=== PATIENT | female | born 1995 | race Two or more races ===

== ENCOUNTER 2022-11-06 07:07 | Emergency (ER) | payer OTHER ==
[~2022-11-06] VITALS: Ht 160 cm; Wt 72.6 kg
== END 2022-11-06 09:49 | disposition home or self-care (01) ==
LOC: ER 07:07
DX: O26.851 Spotting complicating pregnancy, first trimester (principal); Z3A.01 Less than 8 weeks gestation of pregnancy; Z88.6 Allergy status to analgesic agent

== ENCOUNTER 2022-11-24 23:28 | Emergency (ER) | payer OTHER ==
[~2022-11-24] VITALS: Ht 160 cm; Wt 72.6 kg
== END 2022-11-25 09:13 | disposition home or self-care (01) ==
LOC: ER 23:28
DX: O20.8 Other hemorrhage in early pregnancy (principal); Z3A.01 Less than 8 weeks gestation of pregnancy; Z88.5 Allergy status to narcotic agent; Z88.6 Allergy status to analgesic agent

== ENCOUNTER 2023-03-05 16:39 | Emergency (ER) | payer OTHER ==
[~2023-03-05] VITALS: Ht 160 cm; Wt 75.7 kg
== END 2023-03-05 21:55 | disposition home or self-care (01) ==
LOC: ER 16:39
DX: R53.81 Other malaise (principal); J03.90 Acute tonsillitis, unspecified; Z88.5 Allergy status to narcotic agent; Z88.6 Allergy status to analgesic agent

== ENCOUNTER 2023-03-16 08:41 | Outpatient (CLI) | payer OTHER | END 2023-03-16 08:42 | disposition home or self-care (01) | LOC: LAB 08:41 | PROVIDERS: ATTEND Obstetrics & Gynecology | DX: I82.890 Acute embolism and thrombosis of other specified veins (principal) ==

== ENCOUNTER 2023-06-07 07:18 | Emergency (ER) | payer OTHER ==
[~2023-06-07] VITALS: Ht 162.6 cm; Wt 73.9 kg
== END 2023-06-07 09:16 | disposition home or self-care (01) ==
LOC: ER 07:18
DX: J03.80 Acute tonsillitis due to other specified organisms (principal); Z88.6 Allergy status to analgesic agent

== ENCOUNTER → 2023-07-13 07:52 | Outpatient (CLI) | payer OTHER ==
[2023-07-13 08:31] LABS: HEMATOCRIT 38.4 % (36.0-45.00); HEMOGLOBIN 12.9 g/dL (12.0-15.00); MEAN CELL VOLUME 82.1 fL (80.00-100.00); MEAN CORPUSCULAR HEMOGLOBIN 27.6 pg (27.00-32.0); MEAN CORPUSCULAR HGB CONC 33.7 g/dl (32.0-36.0); PLATELET COUNT 392 K/uL (150-450); RED BLOOD COUNT 4.68 M/uL (4.00-6.00); RED CELL DISTRIBUTION WIDTH 14.5 % (11.5-14.5)
[2023-07-13 08:33] LABS: PH,URINE 5.5 (5.0-8.0); URINE APPEARANCE Clear; URINE BILIRRUBIN Negative (NEGATIVE); URINE BLOOD Negative; URINE COLOR Yellow; URINE GLUCOSE Negative (NEGATIVE); URINE LEUKOCYTE Negative; URINE NITRATE Negative; URINE PROTEIN Negative (NEGATIVE); URINE UROBILINOGEN 0.2 E.U./dl
[2023-07-13 08:36] LABS: URINE BACTERIA 361.5 uL (0.0-1933); URINE EPITHELIAL CELLS 32.1 uL (0.0-38.8); URINE RBC 9.1 uL (0.0-20.8); URINE WBC 4.3 uL (0.0-23.2)
[2023-07-13 08:57] LABS: BILIRUBIN TOTAL 0.3 mg/dL (0.3-1.2); CALCIUM 9.6 mg/dL (8.5-10.1); CREATININE SERUM 0.75 mg/dL (0.55-1.02); GFR 93.41; POTASSIUM 3.66 mEq/L (3.5-5.1)
== END | disposition home or self-care (01) ==
LOC: LAB 07:52
PROVIDERS: ATTEND Pediatrics Neonatal-Perinatal Medicine
DX: D64.9 Anemia, unspecified (principal); R82.90 Unspecified abnormal findings in urine; Z32.00 Encounter for pregnancy test, result unknown

== ENCOUNTER → 2023-07-29 06:39 | Outpatient (CLI) | payer OTHER ==
[2023-07-30 15:11] LABS: ANTI CARDIO IGA < 9 APL U/mL (0-11); ANTI CARDIO IGG < 9 GPL U/mL (0-14); ANTI CARDIO IGM < 9 MPL U/mL (0-12)
[2023-07-31 15:11] LABS: dRVVT 36.9 sec (0.0-47.0); interp Comment: (.); ptt-la 33.2 sec (0.0-43.5)
== END | disposition home or self-care (01) ==
LOC: LAB 06:39
PROVIDERS: ATTEND Obstetrics & Gynecology
DX: N91.1 Secondary amenorrhea (principal)

== ENCOUNTER 2024-02-15 07:37 | Emergency (ER) | payer OTHER ==
[~2024-02-15] VITALS: Ht 162.6 cm; Wt 75.7 kg
[2024-02-15] MEDS ORDERED: KETOROLAC TROMETHAMINE 30 MG VIAL IM STA (08:46)
[2024-02-15] MEDS ORDERED: CEFTRIAXONE SODIUM 1,000 MG VIAL IM STA (08:46)
== END 2024-02-15 08:58 | disposition home or self-care (01) ==
LOC: ER 07:39
DX: J03.90 Acute tonsillitis, unspecified (principal); Z88.8 Allergy status to other drugs, medicaments and biological substances

== ENCOUNTER 2024-03-21 13:48 | Emergency (ER) | payer OTHER ==
[~2024-03-21] VITALS: Ht 165.1 cm; Wt 78.5 kg
[2024-03-21] MEDS ORDERED: FAMOtidine 10 MG/ML (4ML VIAL) IV PUSH ONE (16:45)
[2024-03-21] MEDS ORDERED: KETOROLAC TROMETHAMINE 60 MG VIAL IM ONE (16:45)
[2024-03-21 17:47] LABS: HEMATOCRIT 36.9 % (36.0-45.00); HEMOGLOBIN 12.4 g/dL (12.0-15.00); MEAN CELL VOLUME 81.6 fL (80.00-100.00); MEAN CORPUSCULAR HEMOGLOBIN 27.3 pg (27.00-32.0); MEAN CORPUSCULAR HGB CONC 33.4 g/dl (32.0-36.0); PLATELET COUNT 407 K/uL (150-450); RED BLOOD COUNT 4.53 M/uL (4.00-6.00); RED CELL DISTRIBUTION WIDTH 14.6 % (11.5-14.5)
[2024-03-21] MEDS ORDERED: KETO10TA2 PO (18:41)
== END 2024-03-21 20:10 | disposition home or self-care (01) ==
LOC: ER 13:50
PROVIDERS: General Practice
DX: M94.0 Chondrocostal junction syndrome [Tietze] (principal); E11.9 Type 2 diabetes mellitus without complications; Z88.8 Allergy status to other drugs, medicaments and biological substances; Z87.09 Personal history of other diseases of the respiratory system

== ENCOUNTER 2024-03-31 11:30 | Outpatient (CLI) | payer OTHER ==
[~2024-03-31 11:30] MED LIST: KETO10TA2 PO
== END 2024-03-31 11:40 | disposition home or self-care (01) ==
LOC: LAB → PPH VACUNA 11:30
PROVIDERS: ATTEND Emergency Medicine Pediatric Emergency Medicine
DX: Z23 Encounter for immunization (principal)

== ENCOUNTER 2024-05-26 19:17 | Emergency (ER) | payer OTHER ==
[~2024-05-26] VITALS: Ht 162.6 cm; Wt 76.7 kg
[2024-05-26] MEDS ORDERED: ELVITEG/COB/EMTRI/TENOFO DISOP 1 UDTAB TABLET PO ONE ×2 (19:22→19:45)
== END 2024-05-26 20:14 | disposition home or self-care (01) ==
LOC: ER 19:17
DX: Z57.9 Occupational exposure to unspecified risk factor (principal); Z88.5 Allergy status to narcotic agent; Z88.6 Allergy status to analgesic agent

== ENCOUNTER 2024-06-17 10:59 | Outpatient (CLI) | payer OTHER ==
[2024-06-17 11:45] LABS: HEMATOCRIT 36.6 % (36.0-45.00); HEMOGLOBIN 11.8 g/dL (12.0-15.00); MEAN CORPUSCULAR HEMOGLOBIN 26.5 pg (27.00-32.0); MEAN CORPUSCULAR HGB CONC 32.3 g/dl (32.0-36.0); PLATELET COUNT 415 K/uL (150-450); RED BLOOD COUNT 4.47 M/uL (4.00-6.00); RED CELL DISTRIBUTION WIDTH 15.1 % (11.5-14.5)
[2024-06-17 13:03] LABS: ALBUMIN 3.9 gm/dL (3.4-5.0); BILIRUBIN TOTAL 0.43 mg/dL (0.3-1.2); CALCIUM 9.8 mg/dL (8.5-10.1); CHOL HDL RATIO 2.9 (0-5.0); CREATININE SERUM 0.74 mg/dL (0.55-1.02); GFR 94.14; GLOBULINA 4.3 G/DL (2.4-3.5); POTASSIUM 4.07 mEq/L (3.5-5.1); T4 FREE 0.99 NG/ML (0.76-1.46); TOTAL PROTEIN 8.2 gm/dL (6.4-8.2); TSH 0.593 uIU/mL (0.358-3.74)
== END 2024-06-17 11:00 | disposition home or self-care (01) ==
LOC: LAB 10:59
PROVIDERS: ATTEND Physical Medicine & Rehabilitation
DX: Z00.00 Encounter for general adult medical examination without abnormal findings (principal)

== ENCOUNTER 2024-08-04 04:32 | Emergency (ER) | payer OTHER ==
[~2024-08-04] VITALS: Ht 162.6 cm; Wt 78.0 kg
[2024-08-04] MEDS ORDERED: PROMETHAZINE HCL 50 MG/ML AMPUL IM STA (05:50)
[2024-08-04] MEDS ORDERED: HYOSCYAMINE SULFATE 0.125 MG TAB.SUBL SL STA (05:50)
[2024-08-04] MEDS ORDERED: LACTOBACILLUS ACIDOPHILUS 1 CAP CAP PO STA (05:51)
[2024-08-04] MEDS ORDERED: FAMOTIDINE/PF 20 MG/2 ML VIAL IV PUSH STA (05:51)
[2024-08-04] MEDS ORDERED: 0.9 % SODIUM CHLORIDE 1,000 ML IV ONE (06:00)
[2024-08-04] MEDS ORDERED: HYOSCYAMINE SULFATE 0.125 MG TAB.SUBL ONE (06:17)
[2024-08-04] MEDS ORDERED: LACTOBACILLUS ACIDOPHILUS 1 CAP CAP PO ONE (06:17)
[2024-08-04] MEDS ORDERED: FAMOTIDINE/PF 20 MG/2 ML VIAL ONE (06:17)
[2024-08-04] MEDS ORDERED: PROMETHAZINE HCL 50 MG/ML AMPUL IM ONE (06:17)
[2024-08-04 07:03] LABS: HEMATOCRIT 36.4 % (36.0-45.00); HEMOGLOBIN 12.1 g/dL (12.0-15.00); MEAN CELL VOLUME 78.7 fL (80.00-100.00); MEAN CORPUSCULAR HEMOGLOBIN 26.2 pg (27.00-32.0); MEAN CORPUSCULAR HGB CONC 33.2 g/dl (32.0-36.0); PLATELET COUNT 381 K/uL (150-450); RED BLOOD COUNT 4.62 M/uL (4.00-6.00); RED CELL DISTRIBUTION WIDTH 14.7 % (11.5-14.5)
[2024-08-04 07:12] LABS: CALCIUM 9.3 mg/dL (8.5-10.1); CREATININE SERUM 0.88 mg/dL (0.55-1.02); GFR 77.08
[2024-08-04 07:43] VITALS: BP 98/61; O2SAT 100
[2024-08-04 08:35] LABS: PH,URINE 5.5 (5.0-8.0); URINE APPEARANCE Clear; URINE BILIRRUBIN Negative (NEGATIVE); URINE BLOOD Negative; URINE COLOR Yellow; URINE GLUCOSE Negative (NEGATIVE); URINE KETONE 15 (NEGATIVE); URINE LEUKOCYTE Negative; URINE NITRATE Negative; URINE PROTEIN Negative (NEGATIVE); URINE UROBILINOGEN 0.2 E.U./dl
[2024-08-04 08:41] LABS: URINE BACTERIA 113.7 uL (0.0-1933); URINE EPITHELIAL CELLS 9.9 uL (0.0-38.8); URINE RBC 8.8 uL (0.0-20.8)
[2024-08-04 08:45] LABS: URINE WBC 0.7 uL (0.0-23.2)
== END 2024-08-04 10:34 | disposition home or self-care (01) ==
LOC: ER 04:35
PROVIDERS: General Practice
DX: K52.89 Other specified noninfective gastroenteritis and colitis (principal); Z87.09 Personal history of other diseases of the respiratory system; Z88.8 Allergy status to other drugs, medicaments and biological substances

== ENCOUNTER 2024-09-18 15:32 | Emergency (ER) | payer OTHER ==
[~2024-09-18] VITALS: Ht 162.6 cm; Wt 77.1 kg
[2024-09-18] MEDS ORDERED: ORPHENADRINE CITRATE 100 MG TABLET PO STA (16:14)
== END 2024-09-18 18:32 | disposition home or self-care (01) ==
LOC: ER 15:32
DX: S93.492A Sprain of other ligament of left ankle, initial encounter (principal); W19.XXXA Unspecified fall, initial encounter; Y93.89 Activity, other specified; Y92.481 Parking lot as the place of occurrence of the external cause; Y99.8 Other external cause status; Z88.5 Allergy status to narcotic agent; Z91.013 Allergy to seafood

== ENCOUNTER 2024-12-07 08:43 | Emergency (ER) | payer OTHER ==
[~2024-12-07] VITALS: Ht 160 cm; Wt 61.2 kg
[2024-12-07 11:05] LABS: BASO % 0.4 % (0.1-1.2); EOS # 0.12 (0.04-0.54); EOS % 1.1 % (0.7-7.0); LYMPH # 3.65 (1.18-3.74); LYMPH % 34.2 % (19.3-53.1); MEAN PLATELET VOLUME 9.20 fl (9.4-12.4); MONO # 1.04 (0.24-0.82); MONO % 9.7 % (4.7-12.5); NEUT # 5.80 (1.56-6.13); NEUT % 54.4 % (34.0-71.1); RED CELL DISTRIBUTION WIDTH 16.6 % (11.6-14.4)
[2024-12-07 11:46] LABS: COVID-19 AG NEGATIVE (NEGATIVE)
[2024-12-07] MEDS ORDERED: BENZONATATE 100 MG CAPSULE PO ONE (13:30)
[2024-12-07] MEDS ORDERED: BENZONATATE200 M1 PO (13:35)
[2024-12-07] MEDS ORDERED: BUDESONIDE0.5 MG/2 M IH (13:35)
== END 2024-12-07 14:26 | disposition home or self-care (01) ==
LOC: ER 08:43
PROVIDERS: Preventive Medicine Public Health & General Preventive Medicine
DX: R05.8 Other specified cough (principal); Z88.6 Allergy status to analgesic agent; Z91.013 Allergy to seafood; G43.809 Other migraine, not intractable, without status migrainosus; E16.1 Other hypoglycemia; U09.9 Post COVID-19 condition, unspecified; Z20.822 Contact with and (suspected) exposure to COVID-19

== ENCOUNTER 2025-03-05 07:33 | Emergency (ER) | payer OTHER ==
[~2025-03-05] VITALS: Ht 160 cm; Wt 69.9 kg
[~2025-03-05 07:33] MED LIST changes: +BENZONATATE200 M1 PO; +BUDESONIDE0.5 MG/2 M IH
[2025-03-05 08:56] LABS: BASO % 0.3 % (0.1-1.2); EOS # 0.26 (0.04-0.54); EOS % 2.6 % (0.7-7.0); LYMPH # 4.26 (1.18-3.74); LYMPH % 42.5 % (19.3-53.1); MEAN PLATELET VOLUME 9.40 fl (9.4-12.4); MONO # 0.98 (0.24-0.82); MONO % 9.8 % (4.7-12.5); NEUT # 4.48 (1.56-6.13); NEUT % 44.7 % (34.0-71.1); RED CELL DISTRIBUTION WIDTH 16.1 % (11.6-14.4)
[2025-03-05 09:44] LABS: COVID-19 AG NEGATIVE (NEGATIVE)
[2025-03-05 10:40] LABS: ALT/SGPT 15 U/L (12-78); AST/SGOT 15 U/L (15-37); BILIRUBIN TOTAL 0.15 mg/dL (0.3-1.2); BUN CREA RATIO 16 (7.0-25.0); CREATININE SERUM 0.77 mg/dL (0.55-1.02); GFR 89.26; GLOBULINA 4.4 G/DL (2.4-3.5); GLUCOSE FASTING 84 mg/dL (65-100); OSMOLALITY SERUM 275 MOSM/KG (275-295)
[2025-03-05] MEDS ORDERED: CEFTRIAXONE SODIUM 1,000 MG VIAL IM STA (11:35)
[2025-03-05] MEDS ORDERED: LIDOCAINE HCL/MPF 1% 5ML VIAL IJ ONE (11:36)
[2025-03-05] MEDS ORDERED: CEFTRIAXONE SODIUM 1,000 MG VIAL ONE (11:37)
== END 2025-03-05 11:44 | disposition home or self-care (01) ==
LOC: ER 07:33
PROVIDERS: Physician Assistant Medical
DX: J03.80 Acute tonsillitis due to other specified organisms (principal); Z88.6 Allergy status to analgesic agent; Z91.013 Allergy to seafood; Z88.8 Allergy status to other drugs, medicaments and biological substances; E16.1 Other hypoglycemia; J45.909 Unspecified asthma, uncomplicated; M41.80 Other forms of scoliosis, site unspecified; Z20.822 Contact with and (suspected) exposure to COVID-19

== ENCOUNTER 2025-05-04 04:46 | Emergency (ER) | payer OTHER ==
[~2025-05-04] VITALS: Ht 165.1 cm; Wt 71.7 kg
[2025-05-04] MEDS ORDERED: ACETAMINOPHEN 500 MG GEL..CAP PO STA (05:17)
[2025-05-04] MEDS ORDERED: ACETAMINOPHEN 500 MG GEL..CAP PO ONE (05:24)
[2025-05-04 06:15] LABS: BASO % 0.3 % (0.1-1.2); EOS # 0.37 (0.04-0.54); EOS % 3.4 % (0.7-7.0); LYMPH # 5.19 (1.18-3.74); LYMPH % 48.4 % (19.3-53.1); MEAN PLATELET VOLUME 9.20 fl (9.4-12.4); MONO # 1.16 (0.24-0.82); MONO % 10.8 % (4.7-12.5); NEUT # 3.96 (1.56-6.13); NEUT % 36.9 % (34.0-71.1); RED CELL DISTRIBUTION WIDTH 16.0 % (11.6-14.4)
[2025-05-04 06:33] LABS: COVID-19 AG NEGATIVE (NEGATIVE)
[2025-05-04] MEDS ORDERED: ZITHROMAX500 MG PO (07:30)
[2025-05-04] MEDS ORDERED: ORASEP SPRAY30 ML MM (07:30)
== END 2025-05-04 07:40 | disposition home or self-care (01) ==
LOC: ER 04:47
PROVIDERS: General Practice
DX: J02.9 Acute pharyngitis, unspecified (principal); Z88.6 Allergy status to analgesic agent; Z88.9 Allergy status to unspecified drugs, medicaments and biological substances; Z91.013 Allergy to seafood; Z20.822 Contact with and (suspected) exposure to COVID-19